=== PATIENT | female | born 1940 | race Caucasian/White ===

== ENCOUNTER 2023-03-23 04:53 | Emergency (ER) | payer MEDICARE, SELFPAY ==
--- NOTE | ~2023-03-23 | XR_ITS ---
EXAMINATION: XR HIP, RIGHT CLINICAL INFORMATION: Right hip pain COMPARISON: None available. TECHNIQUE: Two views of the right hip. FINDINGS: There is severe joint space narrowing of the right hip with associated sclerosis along the acetabulum and osteophytes of the femoral head. No acute fracture is seen. Partially visualized left hip arthroplasty hardware appears in anatomic alignment. Sacroiliac joints and pubic symphysis are intact. XR/XR hip RT w PEL1V IMPRESSION: No acute findings identified. 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
--- NOTE | ~2023-03-23 | XR_ITS ---
EXAMINATION: XR LUMBOSACRAL SPINE CLINICAL INFORMATION: Pain COMPARISON: None available. TECHNIQUE: Three views of the lumbosacral spine. FINDINGS: There is slight retrolisthesis of L1 on L2 and L2 on L3. Minimal anterolisthesis of L4 on L5. This is suspected to the chronic/degenerative in nature in the setting of multilevel facet arthropathy. Vertebral body heights are maintained. Mild scattered endplate osteophytes. There is disc space narrowing and surrounding degenerative endplate change at L5-S1. Sacroiliac joints appear intact. Multiple calcifications in the right upper quadrant favor gallstones. XR/XR lumbar spine 2-3V IMPRESSION: No acute findings identified. Chronic/degenerative changes as noted above.
[2023-03-23 05:14] VITALS: BP 144/71; BP 151/78; PULSE 69; RESP 18; TEMP 36.6; O2SAT 99; BMI 25.1
--- NOTE | 2023-03-23 05:41 | ECG_ITS ---
Test Reason : Fall Blood Pressure : / mmHG Vent. Rate : 060 BPM Atrial Rate : 060 BPM P-R Int : 152 ms QRS Dur : 090 ms QT Int : 420 ms P-R-T Axes : 073 010 064 degrees QTc Int : 420 ms Normal sinus rhythm Normal ECG No previous ECGs available Referred By: Arlene Davis Electronically Signed By:LUNA MASSEY MD
--- NOTE | 2023-03-23 05:50 | ED_ITS ---
HPI - Back Pain/Injury General Chief Complaint: Back Pain/Injury Stated Complaint: back pain Time Seen by Provider: 03/23/23 05:26 Source: patient Mode of arrival: EMS History of Present Illness HPI Narrative: 82-year-old female who comes in via EMS for complaints of 10/10 back pain which she woke up which decreased upon sitting up. Patient reports pain across her lower back. Patient denies any associated recent falls, fevers, chills and denies any bowel or bladder issues. Patient states she has recently had some x- rays completed for right hip pain as well as her back pain but does not know any of the results. Related Data Allergies Allergy/AdvReac Type Severity Reaction Status Date / Time No Known Allergies Allergy Verified 03/23/23 05:13 Review of Systems Review of Systems: Pertinent positives and negatives as stated in HPI [facility] Past Medical History Source: nursing notes reviewed Social History Social History Advance Directives: No Advance Directives Information Provided: Yes Physical Exam Vital Signs: Vital Signs: Last Vital Signs Temp 97.8 F 03/23/23 05:14 Pulse 63 03/23/23 06:57 Resp 15 03/23/23 06:57 BP 180/78 H 03/23/23 06:57 Pulse Ox 99 03/23/23 06:57 O2 Del Method Room Air 03/23/23 06:57 BMI result Body Mass Index 25.1 VITAL SIGNS: Reviewed. GENERAL: Well developed, well nourished, in no acute distress. HEAD: Normocephalic/atraumatic EYES: PERRLA, EOMI EARS: Ext canals without abnormality NOSE: Nares patent bilateral OROPHARYNX: no oral lesions noted, posterior pharynx clear NECK: Supple, no adenopathy LUNGS: Normal breath sounds. No adventitious sounds or accessory muscle use. Sp O2<99> CARDIOVASCULAR: Regular rate and rhythm without noted murmurs, no JVD or lower extremity edema. ABDOMEN: Soft, non-tender, non-distended with bowel sounds. BACK: No midline vertebral tenderness or step-offs noted MUSCULOSKELETAL: No tenderness, deformities, or effusions noted on gross insp ection. EXTREMITIES: No cyanosis, clubbing or edema; BILATERAL FEET: Contain dressings that are CDI. SKIN: Inspection of the skin reveals no rashes NEUROLOGIC: Alert and oriented x 3. Strength and sensation to light touch were grossly intact x 4. Medical Decision Making Medical Decision Making [facility] Narrative: 82-year-old female with history and clinical presentation, DDX: Arthritis, renal colic, UTI/pyelonephritis, less likely fracture Reviewed all investigations and hematologic indices appear to demonstrate a normal Sittig anemia and no leukocytosis or left shift and no thrombocytopenia but there is no lab work for comparison. Patient does not report bleeding. Chemistry studies demonstrate what appears to be an JORDY with elevated bilirubin but no complaints right upper quadrant pain, fevers or chills. Nursing informed me that patient is complaining of chest pain at this time and will pursue troponin level. Signed out to Dr Trejo. - [facility] Records - UA, Trop Differential Diagnosis Differential Diagnoses: The differential diagnosis associated with the presentation includes Please see the discussion above Admission/Observation Consideration of admission/observation: Escalation of care including admission/observation considered Lab Data [facility] Lab Attestation statement: I reviewed the patient's lab results. Please see the discussion above 03/23/23 05:54 03/23/23 05:54 Labs: Lab Results 03/23/23 03/23/23 Range/Units 05:54 05:54 WBC 6.8 (4.8-10.8) X10*3/uL RBC 3.51 L (4.20-5.50) X10*6/uL Hgb 11.2 L (12.0-16.0) g/dl Hct 33.5 L (37.0-47.0) % MCV 95.4 (80.0-98.0) fL MCH 31.9 (27.0-33.0) pg MCHC 33.4 (31.0-35.0) g/dl RDW 16.3 H (11.0-16.0) % Plt Count 160 (160-400) X10*3/uL MPV 9.8 (9.4-12.3) fL Immature Gran % (Auto) 0.3 (0.0-0.4) % Neut % (Auto) 64.1 (45-73) % Lymph % (Auto) 15.6 L (20-40) % [place] % (Auto) 11.5 H (2-11) % Eos % (Auto) 7.2 H (0-4) % Baso % (Auto) 1.3 (0-2) % Lymph # (Auto) 1.1 L (1.2-4.9) X10*3/uL [place] # (Auto) 0.8 (0.1-1.2) X10*3/uL Eos # (Auto) 0.5 H (0.0-0.4) X10*3/uL Baso # (Auto) 0.1 (0.0-0.2) X10*3/uL Abs Immat Gran (auto) 0.02 (0.00-0.03) X10*3/uL Absolute Neuts (auto) 4.4 (2.0-8.3) x10*3/uL Absolute Nucleated RBC 0.000 (0.0-0.012) X10*3/uL Nucleated RBC % (auto) 0.0 (0.0-0.2) /100WBC Sodium 139 (135-145) mmol/L Potassium 5.0 (3.3-5.1) mmol/L Chloride 109 H (96-108) mmol/L Carbon Dioxide 19 L (22-29) mmol/L Anion Gap 16 (12-20) BUN 40 H (9-16) mg/dL Creatinine 2.52 H (0.5-1.4) mg/dL Estim Creat Clear Calc 16.2 Estimated GFR 18 Random Glucose 89 (60-115) mg/dL Calcium 10.0 (8.4-10.2) mg/dL Total Bilirubin 1.4 H (0.0-1.0) mg/dL AST 44 H (5-31) U/L ALT 25 (0-31) U/L Alkaline Phosphatase 63 (39-117) U/L Total Protein 5.9 L (6.5-8.0) g/dL Albumin 2.8 L (3.5-5.0) g/dL Independent Interpretation I performed an independent interpretation of an: EKG Interpretation: Normal sinus rhythm, HR-60, no STEMI, NC/QRS/QTC is within normal limits. Radiology Impression Radiologist Impression: No fracture, otherwise my interpretation is in agreement with radiology's impression. External Record Review External record reviewed: Outpatient record Discharge Plan Discharge Clinical Impression: Back pain Patient Disposition: Still a Patient
--- OUTSIDE RECORDS SUMMARY | 2023-03-23 05:55 | XMS_ITS | Continuity of Care Document ---
Author Name Unknown Organization [facility] Address [address] [place] [address] [address] [place] [address]- Care Team Providers Care Industrial Relations Director Name Role Phone Maggie Morgan Primary Care Physician Encounter [facility] [place] [place] Date(s): 12/01/19 - 12/11/[address] [place] [address]- [facility] Attending Physician: Katherine Cohen Admitting Physician: Katherine Cohen Referring Physician: AdmKatherine meza Allergies, Adverse Reactions, Alerts Substance Reaction Severity Status NKA Active Medications Aspir 81 Oral Enteric Coated Tablet 1 tablet = 81 mg, By Mouth, Daily, 0 Refills, Maintenance Start Date: 05/20/12 Status: Ordered Synthroid 0.125 mg oral tablet 1 tablet, By Mouth, Daily, # 30 tablet, 0 Refills, Maintenance, Tablet Start Date: 06/19/11 Status: Ordered Problem List Condition Effective Dates Status Health Status Inform ant CKD stage 3(Confirmed) Active
--- OUTSIDE RECORDS SUMMARY | 2023-03-23 05:55 | XMS_ITS | Continuity of Care Document ---
Author Name Unknown Organization [facility] ter Address [address] [place] [id number]- Care Team Providers Care Felt Hat Pouncing Operator Hand Name Role Phone Maggie Morgan Primary Care Physician [phone] Encounter [facility] [place] Date(s): 02/08/23 - 03/10/[address] [address] Attending Physician: Not on Staff, Attending MD Admitting Physician: Not on Staff, Admitting MD Referring Physician: Not on Staff, Referring MD Allergies, Adverse Reactions, Alerts No Known Allergies Immunizations Given and Recorded Vaccine Date Status Refusal Reason tetanus/diphtheria/pertussis, acel(Tdap) 02/07/23 Given Medications Synthroid 0.125 mg oral tablet 1 tablet = 125 mcg, By Mouth, Daily, # 30 tablet, 0 Refills, Maintenance, 02/08/23 0:03:00 EDT, Tablet, Partial fill upon patient request if the prescription is for a schedule II opioid drug. Start Date: 02/08/23 Status: Ordered Problem List Condition Confirmation Course Effective Dates Status Health Status Informant Chronic idiopathic thrombocytopenia Confirmed Active CKD stage 3 Confirmed Active Transaminitis Confirmed Active Hyperbilirubinemia Confirmed Active Hypothyroidism Confirmed Active Obese class I Confirmed Active Social History Social History Type Response Smoking Status Never (less than 100 in lifetime) entered on: 12/19/19 Sex Patient Care team information Care Team Personnel Name: Jocelyne Arzola Position: [facility] Outreach Member Role: Lifetime Consulting Physician Care Team Related Persons Name: RENEE LEDESMA Address: home [address] [place] [address]
[2023-03-23 05:58] LABS: MANUAL DIFF FLAG NO
[2023-03-23 06:00] LABS: Basophils Absolute Auto 0.1 X10*3/uL (0.0-0.2); Basophils Percent Auto 1.3 % (0-2); Eosinophils Absolute Auto 0.5 X10*3/uL (0.0-0.4); Eosinophils Percent Auto 7.2 % (0-4); Hematocrit 33.5 % (37.0-47.0); Hemoglobin 11.2 g/dl (12.0-16.0); Imm Gran Abs Auto 0.02 X10*3/uL (0.00-0.03); Imm Gran Pct Auto 0.3 % (0.0-0.4); Lymphocytes Absolute Auto 1.1 X10*3/uL (1.2-4.9); Lymphocytes Percent Auto 15.6 % (20-40); Mean Corpuscular HGB Conc 33.4 g/dl (31.0-35.0); Mean Corpuscular Hemoglobin 31.9 pg (27.0-33.0); Mean Corpuscular Volume 95.4 fL (80.0-98.0); Mean Platelet Volume 9.8 fL (9.4-12.3); Monocytes Absolute Auto 0.8 X10*3/uL (0.1-1.2); Monocytes Percent Auto 11.5 % (2-11); Neutrophils Absolute Auto 4.4 x10*3/uL (2.0-8.3); Neutrophils Percent Auto 64.1 % (45-73); Platelet Count 160 X10*3/uL (160-400); Red Blood Count 3.51 X10*6/uL (4.20-5.50); Red Cell Distribution Width 16.3 % (11.0-16.0); White Blood Count 6.8 X10*3/uL (4.8-10.8)
[2023-03-23 06:13] LABS: Alanine Aminotransferase 25 U/L (0-31); Albumin Level 2.8 g/dL (3.5-5.0); Alkaline Phosphatase 63 U/L (39-117); Anion Gap 16 (12-20); Aspartate Amino Transferase 44 U/L (5-31); Bilirubin Total 1.4 mg/dL (0.0-1.0); Blood Urea Nitrogen 40 mg/dL (9-16); Carbon Dioxide 19 mmol/L (22-29); Chloride 109 mmol/L (96-108); Creatinine Clr Calc Pharmacy 16.2; Estimated Glomerular Filt Rate 18; Glucose Random 89 mg/dL (60-115); Sodium 139 mmol/L (135-145); Total Protein 5.9 g/dL (6.5-8.0)
--- NOTE | 2023-03-23 06:52 | PC.NURSE ---
PT now with complaints of chest pain. Provider made aware.
[2023-03-23 06:57] VITALS: BP 180/78; PULSE 63; RESP 15; O2SAT 99
--- NOTE | 2023-03-23 07:14 | PC.NURSE ---
assumed care of pt at 0700. pt resting quietly.
[2023-03-23 07:29] LABS: Troponin-I High Sensitivity 21.6 ng/L (<3.5-17.0)
[2023-03-23 07:36] LABS: Lipase 46 U/L (8-78)
[2023-03-23 08:06] VITALS: BP 169/66; PULSE 68; RESP 16; O2SAT 96
--- NOTE | 2023-03-23 08:56 | MHC.CM.ED ---
Addendum entered by Marsha Mauricio 03/23/23 09:29: Patient also receives wound care servcies through [facility]. Original Note: Patient currently in ER due to back pain. Received telephone call from [facility] stating patient is active with their agency for senior care. Referral made in [facility] so [facility] can follow for d/c needs.
== END 2023-03-23 09:57 | disposition home or self-care (01) ==
PROVIDERS: Student in an Organized Health Care Education/Training Program; Emergency Provider Emergency Medicine Emergency Medical Services; PCP Internal Medicine
DX: M54.50 Low back pain, unspecified (principal); S91.302A Unspecified open wound, left foot, initial encounter; S91.301A Unspecified open wound, right foot, initial encounter; X58.XXXA Exposure to other specified factors, initial encounter; R07.9 Chest pain, unspecified; Y93.9 Activity, unspecified; Y92.9 Unspecified place or not applicable; Y99.9 Unspecified external cause status
CPT/HCPCS: 36415; 72100; 73502; 80053; 83690; 84484; 85025; 93005; 99284; 99285

== ENCOUNTER → 2023-03-23 05:41 | Outpatient (BNV) | payer MEDICARE, SELFPAY | PROVIDERS: Emergency Provider Emergency Medicine Emergency Medical Services; PCP Internal Medicine; Visit Provider Internal Medicine Cardiovascular Disease | DX: M54.9 Dorsalgia, unspecified (principal) | CPT/HCPCS: 93010 ==

== ENCOUNTER 2023-03-26 07:54 | Emergency (ER) | payer MEDICARE, SELFPAY ==
--- NOTE | ~2023-03-26 | US_ITS ---
EXAMINATION: US ABDOMEN COMPLETE CLINICAL INFORMATION: Right upper quadrant and epigastric pain and right flank pain. Acute on chronic renal disease.. COMPARISON: Radiographs of lumbar spine from 03/23/2023 TECHNIQUE: Real-time imaging of the abdominal viscera. FINDINGS: PANCREAS: Normal. ABDOMINAL AORTA: Atherosclerotic calcification. The proximal, mid, and distal segments are normal in caliber. INFERIOR VENA CAVA: Visualized portions are normal. LIVER: Liver has diffusely coarse parenchymal echotexture and nodular surface contour. No focal liver lesion or intrahepatic ductal dilatation. GALLBLADDER: The gallbladder is physiologically distended and has several stones. No gallbladder wall thickening or pericholecystic fluid. COMMON BILE DUCT: The visualized common duct measures up to 0.8 - 0.9 cm diameter. The distal duct is obscured by bowel gas. RIGHT AND LEFT KIDNEY: The right kidney is 9.5 cm and left kidney 8.7 cm in length. Mild atrophy of renal cortices. There are hyperechoic areas in regions of corticomedullary junctions of both kidneys that could be from vascular calcifications or small clustered calyceal stones. Vascular calcifications are suspected since there are no convincing renal stones on radiographs from 03/23/2023. No hydronephrosis. No focal parenchymal lesion. SPLEEN: Normal. The spleen measures 9.1 cm in maximum dimension. FREE FLUID: None. US/US abdomen complete IMPRESSION: * Cholelithiasis without evidence of cholecystitis. * The visualized proximal common bile duct measures up to 0.8 - 0.9 cm diameter. The distal duct is obscured by bowel. If there is any hyperbilirubinemia or biliary colic then consider further evaluation with MRCP. * Liver has a coarse parenchymal echotexture and nodular surface contour, consistent with cirrhosis. No focal liver lesion. * The hyperechoic areas in regions of corticomedullary junctions of both kidneys could be from vascular calcifications rather than small clustered calyceal stones. No hydronephrosis. No renal stones seen on recent radiographs from 03/23/2023.
--- NOTE | 2023-03-26 07:59 | ED_ITS ---
HPI - Fall General Chief Complaint: Fall Stated Complaint: Fall w/ head strike, No LOC per EMS Time Seen by Provider: 03/26/23 07:57 Source: patient and EMS Mode of arrival: EMS Limitations: no limitations History of Present Illness HPI Narrative: 82 yo female with history of CKD, chronic ITP, hypothyrodiism, bilateral heel wounds (L>R, currently seeing Wound Clinic here), recurrent falls who presents to the ER for evaluation after she slid out of bed this morning. She states she was NPO for an abdominal U/S and went to reach for a small sip of water on her nightstand and slid on her comforter out of bed. She slowly slid to the ground on her bottom. She did not hit her head. She was unable to get up on her own so she scooted on her bottom down the stairs and to the kitchen. She lives alone. Her son came over and found her on the floor in the kitchen. He was unable to get her up on her own he called 911. Patient reports she has been experiencing upper right abdominal pain and back pain for some time now, at least the last 2-3 months. She has seen her PCP and had x-rays done that were negative. She was due to get abd u/s here today at 1pm. She reports she has been taking a bunch of Advil for the pain. She was unaware she was not supposed to take NSAIDS with CKD. complaint: fall Onset (ago): hour(s) Fall from: out of bed Fall witnessed: no Place fall occurred: home Loss of consciousness: none Prolonged down time: no Symptoms prior to fall: none Context: tripped/slipped Associated symptoms (after fall): abdominal pain Related Data Home Medications Medication Instructions Recorded Confirmed acetaminophen 325 mg tablet 650 mg PO Q6H PRN Pain 03/26/23 03/26/23 (Tylenol) cholecalciferol (vitamin D3) 25 25 mcg PO DAILY 03/26/23 03/26/23 mcg (1,000 unit) tablet (Vitamin D3) fluoride (sodium) 1.1 % dental 1 appl dental BID 03/26/23 03/26/23 paste (Sodium Fluoride 5000 Dry Mouth) levothyroxine 137 mcg tablet 137 mcg PO DAILY@0600 03/26/23 03/26/23 ondansetron 4 mg disintegrating 4 mg PO Q8H PRN Nausea And Vomiting 03/26/23 03/26/23 tablet vitamin B complex 1 cap PO DAILY 03/26/23 03/26/23 Allergies Allergy/AdvReac Type Severity Reaction Status Date / Time No Known Allergies Allergy Verified 03/23/23 05:13 Review of Systems Review of Systems: Yes all other systems are reviewed and are negative [facility] Social History Social History Alcohol intake: never Advance Directives: No Advance Directives Information Provided: No Physical Exam Vital Signs: Vital Signs: Last Vital Signs Temp 97.8 F 03/26/23 08:03 Pulse 68 03/26/23 08:03 Resp 18 03/26/23 08:03 BP 134/50 L 03/26/23 08:03 Pulse Ox 100 03/26/23 08:03 O2 Del Method Room Air 03/26/23 08:03 BMI result Body Mass Index 29.2 Appearance: Alert. Oriented X3. No acute distress. Head: normocephalic, atraumatic. Eyes: Pupils equal, round and reactive to light. ENT: Pharynx normal. No tonsillar swelling or exudate. Neck: Normal inspection. Neck supple. CVS: Normal heart rate and rhythm. Pulses normal. Respiratory: No respiratory distress. Breath sounds normal. Abdomen: Soft with mild RUQ and epigastric tenderness, no guarding or rebound, normal active. +BS x4 Back: no ecchymosis. underwear with dirt from scooting on the floor. nontender spine from cervical to lumbar area. nontender SI joints. Skin: Skin warm and dry. Normal skin color. Normal skin turgor. No rashes. Extremities: No lower extremity edema. No joint swelling. old eccymosis to right lateral thigh, nontender. left heel dressed in clean/dry/sterile dressing. Neuro/psych: Oriented X 3. No motor deficit. No sensory deficit. CN II-XII in tact. Normal speech and cognition. Course Reevaluation(s) Reevaluation #1: Physician observation started at 12:00. Patient placed in physician observation because patient is awaiting PT and case management evaluation for the possible need of short term rehab At the time observation was started patient's vital signs were stable. Patient is alert and oriented. Neuro exam is non-focal. CV: RRR and lungs are clear. Will continue to monitor. Time: 12:19 Medications Administered Discontinued Medications Generic Name Dose Route Start Last Admin Trade Name Sharon PRN Reason Stop Dose Admin Acetaminophen 975 mg 03/26/23 09:29 03/26/23 09:35 Acetaminophen 325 Mg Tablet PO 03/26/23 09:30 975 mg ONCE ONE Administration Oxycodone HCl 2.5 mg 03/26/23 09:29 03/26/23 09:35 Oxycodone Hcl Immed Release 5 Mg Tablet PO 03/26/23 09:30 2.5 mg ONCE ONE Administration Oxycodone HCl 5 mg 03/26/23 12:38 03/26/23 12:51 Oxycodone Hcl Immed Release 5 Mg Tablet PO 03/26/23 12:39 5 mg ONCE ONE Administration Medical Decision Making Medical Decision Making MDM Narrative: 82 yo female with history of CKD, chronic ITP, hypothyrodiism, bilateral heel wounds (L>R, currently seeing Wound Clinic here), recurrent falls who presents to the ER for evaluation after she slid out of bed this morning. She has had recurrent falls with difficulty ambulating due to chronic pain in her left heel. She is seeing Wound therapy for this. She also states chronic right upper quadrant abdominal pain, radiating to the back at times. She is seeing her PCP for this and had negative x-rays. Labs from 3 days ago showed a total bilirubin of 1.4 with a normal alk-phos. Repeat labs today showed acute kidney injury superimposed on chronic kidney disease. Most likely due to NSAID use. Her creatinine is up to 3.67. It appears her baseline is around 2.4 per prior documentation. Abdominal ultrasound is showing cholelithiasis without evidence of cholecystitis. She has a proximal CBD of 0.8-0.9. The distal duct is obscured by bowel. Her bilirubin today is down to 1.1. This should be further evaluated with an MRCP as an outpatient. Evidence of acute obstruction at this time. Case was d/w Dr. Latif who is in agreement with MRCP as outpatient. Patient is unsafe for discharge home with her recurrent falls. She lives home alone. Physical therapy and Case Management have been consulted. Will continue to monitor. Differential Diagnosis Differential Diagnoses: The differential diagnosis associated with the presentation includes JORDY on CKD due to NSAID use, limited mobility and recurrent falls due to chronic pain and ulcer of the left heel, deconditioning, acute infection abd pain could be due to biliary colic, imacted gallstone, kidney stone, pyelonephritis Admission/Observation Consideration of admission/observation: Escalation of care including admission/observation considered elderly female with JORDY on CKD Consult Healthcare Provider Management of the patient was discussed with: Painter Mirror Dr. Latif from general surgery Lab Data MDM Lab Attestation statement: I reviewed the patient's lab results. stable anemia, JORDY on CKD 03/26/23 08:16 03/26/23 08:16 Labs: Lab Results 03/26/23 03/26/23 03/26/23 Range/Units 08:16 08:16 09:00 WBC 9.1 (4.8-10.8) X10*3/uL RBC 3.37 L (4.20-5.50) X10*6/uL Hgb 10.8 L (12.0-16.0) g/dl Hct 32.0 L (37.0-47.0) % MCV 95.0 (80.0-98.0) fL MCH 32.0 (27.0-33.0) pg MCHC 33.8 (31.0-35.0) g/dl RDW 16.6 H (11.0-16.0) % Plt Count 181 (160-400) X10*3/uL MPV 9.8 (9.4-12.3) fL Immature Gran % (Auto) 0.4 (0.0-0.4) % Neut % (Auto) 81.2 H (45-73) % Lymph % (Auto) 7.3 L (20-40) % [place] % (Auto) 8.5 (2-11) % Eos % (Auto) 2.0 (0-4) % Baso % (Auto) 0.6 (0-2) % Lymph # (Auto) 0.7 L (1.2-4.9) X10*3/uL [place] # (Auto) 0.8 (0.1-1.2) X10*3/uL Eos # (Auto) 0.2 (0.0-0.4) X10*3/uL Baso # (Auto) 0.1 (0.0-0.2) X10*3/uL Abs Immat Gran (auto) 0.04 H (0.00-0.03) X10*3/uL Absolute Neuts (auto) 7.4 (2.0-8.3) x10*3/uL Absolute Nucleated RBC 0.000 (0.0-0.012) X10*3/uL Nucleated RBC % (auto) 0.0 (0.0-0.2) /100WBC Sodium 135 (135-145) mmol/L Potassium 5.0 (3.3-5.1) mmol/L Chloride 106 (96-108) mmol/L Carbon Dioxide 20 L (22-29) mmol/L Anion Gap 14 (12-20) BUN 50 H (9-16) mg/dL Creatinine 3.67 H (0.5-1.4) mg/dL Estim Creat Clear Calc 12.8 Estimated GFR 12 Random Glucose 91 (60-115) mg/dL Calcium 9.4 (8.4-10.2) mg/dL Magnesium 2.3 (1.6-2.6) mg/dL Total Bilirubin 1.1 H (0.0-1.0) mg/dL Direct Bilirubin 0.4 (0.0-0.5) mg/dL AST 45 H (5-31) U/L ALT 24 (0-31) U/L Alkaline Phosphatase 58 (39-117) U/L Total Protein 5.9 L (6.5-8.0) g/dL Albumin 2.7 L (3.5-5.0) g/dL Urine Color Yellow Urine Appearance Clear Urine pH 5.5 (5.0-9.0) Ur Specific [place] 1.015 (1.005-1.025) Urine Protein Trace (Neg-Trace) mg/dL Urine Glucose (UA) Negative (Negative) mg/dL Urine Ketones Negative (Negative) mg/dL Urine Blood Negative (Negative) Urine Nitrite Negative (Negative) Ur Leukocyte Esterase Small (1+) H (Negative) Urine RBC 0-2 (0-2) /HPF Urine WBC 6-10 H (0-5) /HPF Ur Squamous Epith Cells 3-5 (0-2) /HPF Urine Bacteria None Seen (None Seen) Hyaline Casts 3-5 (0-2) /LPF Independent Interpretation I performed an independent interpretation of an: Ultrasound Interpretation: us reviewed - gallstones seen, nodular liver, agree w/ radiology read Radiology Impression Discussion of test interpretation with radiology: I have reviewed the radiologist's reading. Radiologist Impression: ?US/US abdomen complete IMPRESSION: *? Cholelithiasis without evidence of cholecystitis. *? The visualized proximal common bile duct measures up to 0.8 - 0.9 cm diameter. The distal duct is obscured by bowel. If there is any hyperbilirubinemia or biliary colic then consider further evaluation with MRCP. *? Liver has a coarse parenchymal echotexture and nodular surface contour, consistent with cirrhosis. No focal liver lesion. *? The hyperechoic areas in regions of corticomedullary junctions of both kidneys could be from vascular calcifications rather than small clustered calyceal stones. No hydronephrosis. No renal stones seen on recent radiographs from 03/23/2023. Independent Historian Clinical information obtained from an independent historian. History obtained from or confirmed by: Other (adult son at the bedside) External Record Review External record reviewed: Outpatient record, Prior outpatient labs and Prior outpatient radiology Prescription Management I considered prescription management with: Pain Medication Chronic Conditions Patient?s care impacted by: Other (CKD, chronic LE wounds) Social Determinants Patient?s care significantly limited by Social Determinants of Health including: Other Social Determinant of Health Critical Care Time Critical Care Time Critical Care Time: No Discharge Plan Discharge Clinical Impression: Non healing left heel wound, Recurrent falls, Abdominal pain Patient Disposition: Still a Patient Prescriptions: No Action levothyroxine 137 mcg Tablet 137 mcg PO DAILY@0600 acetaminophen [Tylenol] 325 mg Tablet 650 mg PO Q6H PRN (Reason: Pain) ondansetron [Zofran ODT] 4 mg Tablet,Disintegrating 4 mg PO Q8H PRN (Reason: Nausea And Vomiting) fluoride (sodium) [Sodium Fluoride 5000 Dry Mouth] 1.1 % Paste 1 appl DENTAL BID vitamin B complex [B Complex] Capsule 1 cap PO DAILY cholecalciferol (vitamin D3) [Vitamin D3] 25 mcg (1,000 unit) Tablet 25 mcg PO DAILY
[2023-03-26 08:03] VITALS: BP 102/68; BP 134/50; PULSE 68; RESP 18; TEMP 36.6; O2SAT 100; BMI 29.2
[2023-03-26 08:23] LABS: MANUAL DIFF FLAG NO
[2023-03-26 08:24] LABS: Basophils Absolute Auto 0.1 X10*3/uL (0.0-0.2); Basophils Percent Auto 0.6 % (0-2); Eosinophils Absolute Auto 0.2 X10*3/uL (0.0-0.4); Hemoglobin 10.8 g/dl (12.0-16.0); Imm Gran Abs Auto 0.04 X10*3/uL (0.00-0.03); Imm Gran Pct Auto 0.4 % (0.0-0.4); Lymphocytes Absolute Auto 0.7 X10*3/uL (1.2-4.9); Lymphocytes Percent Auto 7.3 % (20-40); Mean Corpuscular HGB Conc 33.8 g/dl (31.0-35.0); Mean Platelet Volume 9.8 fL (9.4-12.3); Monocytes Absolute Auto 0.8 X10*3/uL (0.1-1.2); Monocytes Percent Auto 8.5 % (2-11); Neutrophils Absolute Auto 7.4 x10*3/uL (2.0-8.3); Neutrophils Percent Auto 81.2 % (45-73); Platelet Count 181 X10*3/uL (160-400); Red Blood Count 3.37 X10*6/uL (4.20-5.50); Red Cell Distribution Width 16.6 % (11.0-16.0); White Blood Count 9.1 X10*3/uL (4.8-10.8)
[2023-03-26 08:40] LABS: Alanine Aminotransferase 24 U/L (0-31); Albumin Level 2.7 g/dL (3.5-5.0); Alkaline Phosphatase 58 U/L (39-117); Anion Gap 14 (12-20); Aspartate Amino Transferase 45 U/L (5-31); Bilirubin Direct 0.4 mg/dL (0.0-0.5); Bilirubin Total 1.1 mg/dL (0.0-1.0); Blood Urea Nitrogen 50 mg/dL (9-16); Calcium 9.4 mg/dL (8.4-10.2); Carbon Dioxide 20 mmol/L (22-29); Chloride 106 mmol/L (96-108); Creatinine Clr Calc Pharmacy 12.8; Estimated Glomerular Filt Rate 12; Glucose Random 91 mg/dL (60-115); Magnesium 2.3 mg/dL (1.6-2.6); Sodium 135 mmol/L (135-145); Total Protein 5.9 g/dL (6.5-8.0)
[2023-03-26 09:07] LABS: Appearance Urine Clear; Color Urine Yellow; Glucose Urine UA Negative (Negative); Leukocyte Esterase Urine Small (1+) (Negative); Nitrite Urine Negative (Negative); PH 5.5 (5.0-9.0); Specific Gravity - Urine 1.015 (1.005-1.025); UMIC TRIGGER UACC YES; Urine Blood Negative (Negative); Urine Ketones Negative (Negative); Urine Protein Trace mg/dL (Neg-Trace)
[2023-03-26 09:12] LABS: Bacteria Urine None Seen (None Seen); RBC Urine 0-2 /HPF (0-2); UACC Culture Trigger YES
[2023-03-26] MEDS: Acetaminophen 325 MG TABLET 975 MG PO (09:35)
[2023-03-26] MEDS: oxyCODONE HCl Immed Release 5 MG TABLET 2.5 MG PO (09:35)
[2023-03-26] MEDS: oxyCODONE HCl Immed Release 5 MG TABLET PO ×2 (12:51→22:19)
--- NOTE | 2023-03-26 13:57 | PHA.MEDREC ---
Pharmacy Consult ? Medication Reconciliation Pharmacy has completed the medication reconciliation. Spoke to patient to confirm meds.
--- NOTE | 2023-03-26 14:30 | MHC.CM.ED ---
Received consult for assessment of d/c needs: pt brought to ED for eval after son found her on the floor from a fall and couldn't assist her. Met with pt who states she lives alone, drives and has support from her son Gasper. Pt admits to falling and having increased difficulty managing at home alone. States she has neighbors who help but feels her current situation is not safe for her to be alone. PCP Dr. Pascual, HCP on file. Review of clinical information does not support medical admission - discussed w/ED PA. Pt does not have a secondary payor, only Medicare. She states she does not have funds to pay privately and does not have a 3 day Medicare qualifying stay. She states she wouldn't be able to pay for live in or 05/04 caregiver as well. PT eval supports STR. Call placed to Gasper to discuss above. He requests to speak w/ED PA about getting the pt admitted for falling, cognitive decline and abdominal pain Gasper is not able to care for pt as he is a time cycle operator caregiver to a disabled son. In addition, he states he is having joint replacement surgeries soon. Will refer pt to acute rehab pending OT eval which will not occur until 03/29 as OT is not available. If accepted, pt will not require a 3 midnight stay per Medicare. Will also refer pt to [facility] financial counseling for assistance w/[employer] application for a secondary payor source. Pt will board in the ED pending completion of evals and financial applications for a safe d/c. Pt and son aware.
--- NOTE | 2023-03-26 18:34 | PC.NURSE ---
PT/CM SEEN FOR STR
--- NOTE | 2023-03-26 19:01 | MHC.CM.ED ---
HCP reviewed, completed and signed. Uploaded into [facility] and [facility] Expanse. Copies given. HCP/son Gasper Candelario ([phone]). Awaiting OT consult.
[2023-03-27 00:39] VITALS: BP 156/64; PULSE 77; RESP 16; TEMP 36.6; O2SAT 97
[2023-03-27] MEDS: Acetaminophen 325 MG TABLET 650 MG PO ×3 (01:22→15:16)
--- NOTE | 2023-03-27 01:49 | PC.NURSE ---
patient in bed with eyes open patient showing no distress patient was introduced to the staff patient is calm and cooperative patient will continue to be monitored for safety
[2023-03-27] MEDS: Levothyroxine Sodium 112 MCG TABLET PO (05:33)
[2023-03-27] MEDS: Levothyroxine Sodium 25 MCG TABLET PO (05:34)
--- NOTE | 2023-03-27 05:34 | PC.NURSE ---
patient in bed with eyes open patient vital are stable patient received all medications that were ordered patient will continue to be monitored for safety
[2023-03-27 05:57] VITALS: BP 139/68; PULSE 73; RESP 17; TEMP 36.8; O2SAT 95
[2023-03-27 08:00] VITALS: BP 137/58; PULSE 68; RESP 18; TEMP 36.1; O2SAT 98
[2023-03-27] MEDS: Multivitamin TABLET 1 TAB PO (08:50)
[2023-03-27] MEDS: oxyCODONE HCl Immed Release 5 MG TABLET PO ×2 (08:51→15:17)
[2023-03-27] MEDS: Cholecalciferol (Vitamin D3) 25 MCG TABLET PO (08:51)
[2023-03-27 10:00] VITALS: BP 137/58; PULSE 68; RESP 16; TEMP 36.1; O2SAT 98
[2023-03-27 11:48] VITALS: BP 134/60; PULSE 64; RESP 16; TEMP 36.4; O2SAT 96
[2023-03-27 12:11] LABS: Anion Gap 13 (12-20); Blood Urea Nitrogen 64 mg/dL (9-16); Calcium 9.4 mg/dL (8.4-10.2); Carbon Dioxide 20 mmol/L (22-29); Chloride 107 mmol/L (96-108); Creatinine Clr Calc Pharmacy 13.3; Estimated Glomerular Filt Rate 12; Glucose Random 97 mg/dL (60-115); Sodium 135 mmol/L (135-145)
[2023-03-27 12:21] LABS: COVID-19 Test Negative (Negative); IDNOW Serial# 08D9AD1C
--- NOTE | 2023-03-27 13:19 | MHC.CM.ED ---
Patient remains in ER overflow. Physical therapy rec rehab. [facility] is able to offer a bed. Met with patient in regards to discharge planning. Patient concerned about going to [place]. She feels it is too far for patient's son, Gasper. T/W spoke with patient's son, Gasper, he feels [facility] is appropriate. Patient aware and agreeable. [facility] booked for 330pm. Med nec in chart. Patient, Ashley Jackman RN and Jazmine CANCHOLA aware. Continue to monitor for d/c needs.
[2023-03-27 14:00] VITALS: BP 127/62; PULSE 65; RESP 16; TEMP 36.4; O2SAT 97
== END 2023-03-27 15:55 | disposition skilled nursing facility (03) ==
PROVIDERS: Physician Assistant; Emergency Provider Emergency Medicine; PCP Internal Medicine
DX: S91.312A Laceration without foreign body, left foot, initial encounter (principal); R10.32 Left lower quadrant pain; R26.2 Difficulty in walking, not elsewhere classified; X58.XXXA Exposure to other specified factors, initial encounter; Y93.9 Activity, unspecified; Y92.9 Unspecified place or not applicable; Y99.9 Unspecified external cause status; Z20.822 Contact with and (suspected) exposure to COVID-19; Z20.828 Contact with and (suspected) exposure to other viral communicable diseases; Z91.81 History of falling; Z79.899 Other long term (current) drug therapy
CPT/HCPCS: 36415; 76700; 80048; 80076; 81001; 83735; 85025; 87086; 87635; 97162; 99284; 99285

== ENCOUNTER 2023-03-31 14:00 | Outpatient (RCR) | payer MEDICARE, SELFPAY | END 2023-03-31 16:00 | disposition home or self-care (01) | LOC: HO.WCC 14:00 | PROVIDERS: PCP Internal Medicine; Visit Provider Surgery | DX: I70.244 Atherosclerosis of native arteries of left leg with ulceration of heel and midfoot (principal); L89.629 Pressure ulcer of left heel, unspecified stage; Z79.899 Other long term (current) drug therapy | CPT/HCPCS: 11043; 11046 ==